=== PATIENT | female | born 1975 | race Caucasian/White ===

== ENCOUNTER 2017-11-12 19:49 | Emergency (ER) | payer OTHER ==
[2017-11-12 20:04] LABS: ADD MAN DIFF? NO
[2017-11-12] MEDS: ALPRAZolam 0.5 MG TABLET PO (20:05)
[2017-11-12] MEDS: ASPIRIN CHEWABLE 81 MG TABLET. PO (20:05)
[2017-11-12 20:06] LABS: BASO # 0.1 x10^3/uL (0.0-0.2); BASO % 1 % (0-3); EOS # 0.2 x10^3/uL (0.0-0.7); EOS % 2 % (0-3); HEMATOCRIT 42.5 % (36.0-47.0); HEMOGLOBIN 14.8 g/dL (12.0-15.5); LYMPH # 3.4 x10^3/uL (1.0-4.8); LYMPH % 39 % (24-48); MEAN CORPUSCULAR HEMOGLOBIN 30 pg (25-35); MEAN CORPUSCULAR HGB CONC 35 g/dL (31-37); MEAN CORPUSCULAR VOLUME 87 fL (79-100); MONO # 0.7 x10^3/uL (0.0-1.1); MONO % 8 % (0-9); NEUT # 4.4 x10^3uL (1.8-7.7); NEUT % 50 % (31-73); PLATELET COUNT 497 x10^3/uL (140-400); RED BLOOD COUNT 4.89 x10^6/uL (3.50-5.40); RED CELL DISTRIBUTION WIDTH 13.4 % (11.5-14.5); WHITE BLOOD COUNT 8.8 x10^3/uL (4.0-11.0)
[2017-11-12 20:20] LABS: ALBUMIN 4.1 g/dL (3.4-5.0); ALK PHOS 75 U/L (46-116); ALT (SGPT) 32 U/L (14-59); ANION GAP 14 (6-14); AST (SGOT) 25 U/L (15-37); BLOOD UREA NITROGEN 11 mg/dL (7-20); BUN/CREATININE RATIO 14 (6-20); CALCIUM 9.1 mg/dL (8.5-10.1); CARBON DIOXIDE 25 mmol/L (21-32); CHLORIDE 102 mmol/L (98-107); CREATININE 0.8 mg/dL (0.6-1.0); GFR 78.3; GLUCOSE 129 mg/dL (70-99); SODIUM 141 mmol/L (136-145); TOTAL BILIRUBIN 0.7 mg/dL (0.2-1.0); TOTAL PROTEIN 8.2 g/dL (6.4-8.2)
[2017-11-12 20:21] LABS: TROPONINI < 0.017 ng/mL (0.000-0.055)
[2017-11-12 20:23] LABS: POTASSIUM 2.9 mmol/L (3.5-5.1)
[2017-11-12] MEDS: LIDO:MAALOX 1:1 20 ML SINGLE DOSE. SWSW (20:27)
[2017-11-12] MEDS: POTASSIUM CHLORIDE 20 MEQ TABLET.ER. PO (20:39)
== END 2017-11-12 20:52 | disposition home or self-care (01) ==
LOC: ER 19:49
DX: F41.1 Generalized anxiety disorder (principal); E87.6 Hypokalemia; Z88.0 Allergy status to penicillin
CPT/HCPCS: 36415; 71045; 80053; 84484; 85025; 93005; 99285-25